=== PATIENT | female | born 1960 | race Caucasian/White ===

== ENCOUNTER 2025-03-05 10:02 | Emergency (ER) | payer SELFPAY ==
[~2025-03-05] VITALS: Ht 152.4 cm; Wt 65.0 kg
[2025-03-05 10:09] VITALS: TEMP 98.3; O2SAT 99
[2025-03-05 11:08] VITALS: BP 128/80; PULSE 88; RESP 17
[2025-03-05] MEDS: BACITRACIN ZINC OINT UDPKT TOP ONE (11:08)
[2025-03-05] MEDS: KETOROLAC 15MG/ML VIAL IM ONE (11:08)
== END 2025-03-05 11:14 | disposition home or self-care (01) ==
LOC: ER 10:02
DX: S00.93XA Contusion of unspecified part of head, initial encounter (principal); S13.4XXA Sprain of ligaments of cervical spine, initial encounter; S20.229A Contusion of unspecified back wall of thorax, initial encounter; S43.401A Unspecified sprain of right shoulder joint, initial encounter; S60.812A Abrasion of left wrist, initial encounter; W10.0XXA Fall (on)(from) escalator, initial encounter; Y93.89 Activity, other specified; Y92.89 Other specified places as the place of occurrence of the external cause; Y99.8 Other external cause status
CPT/HCPCS: 99283; 96372; J1885